=== PATIENT | male | born 1985 | race Caucasian/White ===

== ENCOUNTER 2021-03-19 16:46 | Emergency (ER) | payer OTHER, SELFPAY ==
[2021-03-19 16:51] VITALS: BP 148/96; PULSE 89; RESP 16; TEMP 36.6; O2SAT 99
--- NOTE | 2021-03-19 17:00 | ED.SKABFB ---
HPI - Skin/Abscess/Foreign Bdy General Chief complaint: Skin/Abscess/Foreign Body Stated complaint: insect bite Time Seen by Provider: 03/19/21 16:54 Source: patient and RN notes reviewed Mode of arrival: ambulatory Limitations: no limitations History of Present Illness HPI narrative: Patient presents today with a possible insect bite to his right lateral ankle that he noticed last night. He was doing yard work yesterday and believes this may be where it came from. Describes the pain as achy. Denies itching. He did put some peroxide and Neosporin on it yesterday. Denies history of staph infections, abscesses, boils. MD complaint: insect bite/sting Related Data Allergies Allergy/AdvReac Type Severity Reaction Status Date / Time shellfish derived Allergy Hives Verified 03/19/21 17:04 Review of Systems Review of Systems: CONSTITUTIONAL: Denies body aches, fever, chills, or sweats. EYES: Denies visual changes, redness, or discharge. ENT: Denies rhinorrhea, congestion, sore throat, or otalgia. CARDIOVASCULAR: Denies chest pain, palpitations, or edema. RESPIRATORY: Denies cough or dyspnea. GASTROINTESTINAL: Denies abdominal pain, nausea, vomiting, or diarrhea. GENITOURINARY: Denies dysuria or hematuria. SKIN: Denies rash, itching. + Possible insect bite to right lateral ankle MUSCULOSKELETAL: Denies back pain, joint pain, or myalgia. NEUROLOGIC: Denies headache, numbness, tingling, or weakness. PSYCH: Denies depression or anxiety. PMFSH Family History Family History Father Hypertension Social History Social History Smoking status: Never smoker Alcohol intake: current Comments At time of signature, I have reviewed and agree with nursing past medical, surgical, social and family history unless otherwise noted. Please see nursing chart for further information. There is no relevant family history pertinent to the presenting complaint Exam Narrative: GENERAL: Well-appearing, well-nourished, and in no acute distress. HEAD: Normocephalic, atraumatic. EYES: EOMI. No redness or drainage. Conjunctivae normal. ENT: Mucous membranes pink and moist. NECK: Normal AROM. EXTREMITIES: Normal range of motion. No edema. SKIN: Warm, dry, no rash. Capillary refill normal. Normal skin turgor. Approximately 3 cm round area of erythema with scant induration and small scab in the center to the right lateral ankle. No fluctuance. NEURO: No focal deficits. Alert and oriented x3. Gait steady. PSYCH: Normal affect. No signs of depression or anxiety. Course Vital Signs Vital signs: Vital Signs Temperature 98 F 03/19/21 16:51 Pulse Rate 89 03/19/21 16:51 Respiratory Rate 16 03/19/21 16:51 Blood Pressure 148/96 H 03/19/21 16:51 Pulse Oximetry 99 03/19/21 16:51 Temperature 98 F 03/19/21 16:51 Pulse Rate 89 03/19/21 16:51 Respiratory Rate 16 03/19/21 16:51 Blood Pressure 148/96 H 03/19/21 16:51 Pulse Oximetry 99 03/19/21 16:51 Reviewed. Pt has been instructed to follow up with his PCP regarding his elevated blood pressure today. MDM - Skin/Abscess/Foreign Bdy Differential Diagnosis Differential diagnosis: Likely abscess of skin or subcutaneous tissue, cellulitis, insect bites, impetigo and contact dermatitis Critical Care Time Critical Care Time Critical Care Time: No Discharge Plan Discharge Clinical Impression: Cellulitis Qualifiers: Site of cellulitis: extremity Site of cellulitis of extremity: lower extremity Laterality: right Qualified Code(s): L03.115 - Cellulitis of right lower limb Patient Disposition: Home, Self-Care Condition: Stable Instructions: Antibiotic Form, Cellulitis (ED) Additional Instructions: The skin on your ankle is slightly infected. Please take the Keflex as prescribed and use the mupirocin ointment as directed. Clean with soap and
== END 2021-03-19 17:09 | disposition home or self-care (01) ==
PROVIDERS: Emergency Provider Nurse Practitioner; PCP Student in an Organized Health Care Education/Training Program
DX: L03.115 Cellulitis of right lower limb (principal)
CPT/HCPCS: 99213; G0463

== ENCOUNTER 2021-04-04 23:05 | Emergency (ER) | payer OTHER, SELFPAY ==
[2021-04-04 23:13] VITALS: BP 146/97; PULSE 97; RESP 20; TEMP 36.2; O2SAT 97
--- NOTE | 2021-04-04 23:35 | ED.ANIMALBIT ---
HPI - Animal Bite General Chief Complaint: Animal Bite Stated Complaint: left eye lac - dog bite Time Seen by Provider: 04/04/21 23:35 Source: patient Mode of arrival: ambulatory Limitations: no limitations History of Present Illness HPI narrative: Patient is a 36-year-old male complaining of of being bitten by his dog on his left eyelid. Patient states that his dog is scared of thunder and lightening, gets anxiety, and when he tried to put the dog to his bed and that is when the dog accidentally bit him. Dog's immunization is up-to-date. No other injuries or pain. Related Data Allergies Allergy/AdvReac Type Severity Reaction Status Date / Time shellfish derived Allergy Hives Verified 03/19/21 17:04 Review of Systems Review of Systems: All systems reviewed & are unremarkable except as noted in HPI and below PMFSH Family History Family History Father Hypertension Social History Social History Smoking status: Never smoker Alcohol intake: current Comments Past medical history: None Exam Const: General: no acute distress and alert Orientation/consciousness: patient oriented x3 HENMT: Other: 0.5 cm puncture wound left upper eyelid, superficial Eyes: Conjunctivae: conjunctivae normal Pupils: Equal, round and reactive pupils present EOM: EOMs intact bilaterally Neck: Neck: normal visual inspection Resp: Effort & Inspection: normal respiratory effort Course Vital Signs Vital signs: Vital Signs Temperature 36.2 C L 04/04/21 23:13 Pulse Rate 97 04/04/21 23:13 Respiratory Rate 20 04/04/21 23:13 Blood Pressure 146/97 H 04/04/21 23:13 Pulse Oximetry 97 04/04/21 23:13 Temperature 36.2 C L 04/04/21 23:13 Pulse Rate 97 04/04/21 23:13 Respiratory Rate 20 04/04/21 23:13 Blood Pressure 146/97 H 04/04/21 23:13 Pulse Oximetry 97 04/04/21 23:13 Discharge Plan Discharge Clinical Impression: Dog bite Qualifiers: Encounter type: initial encounter Qualified Code(s): W54.0XXA - Bitten by dog, initial encounter Patient Disposition: Home, Self-Care Condition: Improved Instructions: Animal Bite (ED) Prescriptions: New amoxicillin-pot clavulanate [Augmentin] 500-125 mg tablet 1 tablet PO Q12H Qty: 10 RF: 0 No Action cephalexin 500 mg capsule 500 mg PO Q6H 7 Days Qty: 28 RF: 0 mupirocin 2 % ointment 1 applic topical BID Qty: 22 RF: 0 Follow-up/Referrals: Jeni,DO Davian [Primary Care Provider] - 04/06/21 Time of Disposition: 23:38
== END 2021-04-04 23:53 | disposition home or self-care (01) ==
PROVIDERS: Emergency Provider Emergency Medicine; PCP Student in an Organized Health Care Education/Training Program
DX: S01.152A Open bite of left eyelid and periocular area, initial encounter (principal); W54.0XXA Bitten by dog, initial encounter
CPT/HCPCS: 99283